=== PATIENT | male | born 1945 | race Caucasian/White ===

== ENCOUNTER 2017-12-15 13:41 | Emergency (ER) | payer OTHER ==
[~2017-12-15] VITALS: Ht 167.6 cm; Wt 88.5 kg
[2017-12-15] MEDS ORDERED: OMEPRAZOLE 20 M20 MG PO (14:14)
[2017-12-15] MEDS ORDERED: ASPIR 8181 MG PO (14:14)
[2017-12-15] MEDS ORDERED: AUGMENTIN 875-1 EACH PO (14:19)
[2017-12-15 15:12] VITALS: BP 163/102
== END 2017-12-15 15:13 | disposition home or self-care (01) ==
LOC: M.ERS 13:41
DX: S41.152A Open bite of left upper arm, initial encounter (principal); W54.0XXA Bitten by dog, initial encounter; Y93.89 Activity, other specified; Y92.89 Other specified places as the place of occurrence of the external cause; Y99.8 Other external cause status; Z85.828 Personal history of other malignant neoplasm of skin

== ENCOUNTER → 2019-04-27 | Outpatient (CLI) | payer OTHER ==
[~2019-04-27] MED LIST: ASPIR 8181 MG PO; AUGMENTIN 875-1 EACH PO; OMEPRAZOLE 20 M20 MG PO
[2019-04-27 10:24] LABS: HEMATOCRIT 45.1 % (42.0-52.0); HEMOGLOBIN 15.2 gm/dL (14.0-18.0); MCH 31.4 pg (26.0-34.0); MCHC 33.6 g/dL (28.0-37.0); MCV 93.3 fL (80.0-100.0); MPV 8.5 fl. (7.2-11.1); RBC 4.83 mil/uL (4.50-6.00); WBC 5.6 thou/uL (4.0-11.0)
[2019-04-27 10:39] LABS: ALBUMIN 3.9 g/dL (3.4-5.0); CALCIUM 8.8 mg/dL (8.5-10.1); CREATININE 1.2 mg/dL (0.6-1.3); POTASSIUM 4.2 mmol/L (3.5-5.1); TOTAL BILIRUBIN 0.3 mg/dL (<0.1-1.0); TOTAL PROTEIN 7.3 g/dL (6.4-8.2)
== END ==
LOC: M.LAB 10:06
PROVIDERS: Otolaryngology Plastic Surgery within the Head & Neck
DX: C79.9 Secondary malignant neoplasm of unspecified site (principal)